=== PATIENT | female | born 1990 | race Caucasian/White ===

== ENCOUNTER 2017-02-06 12:45 | Emergency (ER) | payer OTHER ==
[~2017-02-06] VITALS: Ht 170.2 cm; Wt 91.0 kg
[2017-02-06 12:48] VITALS: BP 127/73
== END 2017-02-06 14:29 | disposition home or self-care (01) ==
LOC: ED 14:25
DX: K08.89 Other specified disorders of teeth and supporting structures (principal)
CPT/HCPCS: 99283